=== PATIENT | female | born 1985 | race Caucasian/White ===

== ENCOUNTER 2020-06-27 02:53 | Emergency (ER) | payer OTHER, SELFPAY ==
--- NOTE | ~2020-06-27 | XR_ITS ---
EXAMINATION: XR chest 1V portable DATE: 06/27/2020 04:27 INDICATION: Chest pressure. TECHNIQUE: A single frontal view of the chest was obtained. COMPARISON: Chest CT 07/14 FINDINGS: The chest demonstrates clear lungs without pneumonia, pleural effusion, or pneumothorax. Th e heart size is normal. IMPRESSION: 1. No acute cardiopulmonary disease. Reviewed, dictated and finalized at location A. RPRETATIVE DANCER
--- NOTE | ~2020-06-27 | CT_ITS ---
EXAMINATION: CTA chest PE protocol DATE: 06/27/2020 05:46 INDICATION: Shortness of breath. TECHNIQUE: Computed tomography angiography (CTA) of the chest was performed with 100 mL Omnipaque-350 intravenous contrast timed to evaluate the pulmonary arteries. Coronal maximum intensity projection 3D-reconstructions were created by the technologist. Automated exposure control and iterative reconst ruction technique were employed. The dose-length product was 166.27 mGy-cm. COMPARISON: None. FINDINGS: There is no pneumonia or pleural effusion. The heart size is normal. No pericardial effusio n. There is no pulmonary embolus. There is mild thoracic spondylosis. IMPRESSION: 1. No pulmonary embolism. Reviewed, dictated and finalized at location A. ING ASSISTANT IMPRESSION: 1. No pulmonary embolism.
--- NOTE | ~2020-06-27 | XR_ITS ---
EXAMINATION: 1. XR ankle LT min 3V 2. XR foot LT min 3V DATE: 06/27/2020 03:30 INDICATION: Left foot and ankle injury. TECHNIQUE: 4 views of left ankle and 4 views of the left foot were obtained. COMPARISON: None. FINDINGS: LEFT ANKLE: There is a spiral fracture of distal fibula with medial aspect of the fracture line at th e level of the tibial plafond. The distal fracture fragment demonstrates near-anatomic alignment. The re is a small fragment of ossification distal to medial malleolus. Joint spaces are normal. Ankle sof t tissue swelling is noted. LEFT FOOT: There is mild hallux valgus. There is an old healed fracture of neck of fifth metatarsal. There is mild osteoarthritis of first metatarsophalangeal joint. IMPRESSION: 1. Acute spiral fracture of distal fibula. 2. Small fragment of ossification distal to medial malleolus, which may be an acute avulsion fracture or a finding from old injury. Reviewed, dictated and finalized at location A. ITALITY COORDINATOR IMPRESSION: 1. Acute spiral fracture of distal fibula. 2. Small fragment of ossification distal to medial malleolus, which may be an a cute avulsion fracture or a finding from old injury.
[2020-06-27 03:01] VITALS: BP 123/76; PULSE 134; RESP 20; TEMP 36.7; O2SAT 100
--- NOTE | 2020-06-27 03:22 | ED_ITS ---
HPI - Extremity Injury (Lower) General Chief Complaint: Extremity Problem,Nontraumatic Stated Complaint: foot pain Time Seen by Provider: 06/27/20 02:57 Source: patient Mode of arrival: ambulatory Limitations: no limitations History of Present Illness HPI Narrative: Patient is a 35-year-old female complaining of left foot and left ankle pain after she tripped and fell last night. Related Data Allergies Allergy/AdvReac Type Severity Reaction Status Date / Time cefaclor [From Ceclor] Allergy Rash Verified 06/27/20 03:05 [facility] Social History Social History Gender identity (if verbalized by the patient): Female Exam Const: General: no acute distress and alert Orientation/consciousness: patient oriented x3 HENMT: Head: normal to inspection Eyes: Conjunctivae: conjunctivae normal Neck: Neck: normal visual inspection Resp: Effort & Inspection: normal respiratory effort Back/Spine/Pelvis: Back: no CVA tenderness Skin: General skin exam: normal color, no jaundice and no pallor Extrem: Other: Left ankle swelling, left foot swelling, pain on palpation of the left ankle and foot, neurovascular is intact bilateral lower extremities Course Vital Signs Vital signs: Vital Signs Temperature 36.7 C 06/27/20 03:01 Pulse Rate 134 H 06/27/20 03:01 Respiratory Rate 20 06/27/20 03:01 Blood Pressure 123/76 06/27/20 03:01 Pulse Oximetry 100 06/27/20 03:01 Temperature 36.7 C 06/27/20 03:01 Pulse Rate 134 H 06/27/20 03:01 Respiratory Rate 20 06/27/20 03:01 Blood Pressure 123/76 06/27/20 03:01 Pulse Oximetry 100 06/27/20 03:01 MDM - Extremity Injury (Lower) Differential Diagnosis Differential diagnosis: Likely ankle sprain and strain and ankle fracture Discharge Plan Discharge Clinical Impression: Left ankle sprain Qualifiers: Encounter type: initial encounter Involved ligament of ankle: unspecified li gament Qualified Code(s): S93.402A - Sprain of unspecified ligament of left ankle, initial encounter Sprain of foot, left Qualifiers: Encounter type: initial encounter Qualified Code(s): S93.602A - Unspecified sprain of left foot, initial encounter Patient Disposition: Home, Self-Care Condition: Improved Instructions: Antibiotic Form, Foot Sprain (ED) Prescriptions: New naproxen [Naprosyn] 500 mg tablet 500 mg PO Q12H PRN (Reason: pain) Qty: 10 RF: 0 Follow-up/Referrals: PHYSICIAN NOT ON STAFF,NONSTAFF [Primary Care Provider] - Time of Disposition: 03:34
[2020-06-27] MEDS: KETOROLAC 30 MG/ML VIAL (*BKC) IM (03:54)
--- NOTE | 2020-06-27 04:03 | ECG_ITS ---
Measurements Intervals [place] Rate: 120 P: 91 AR: 120 QRS: 87 QRSD: 81 T: 54 QT: 339 QTc: 480 Interpretive Statements SINUS TACHYCARDIA NONSPECIFIC ST & T-WAVE ABNORMALITY- INFERIOR LEADS BASELINE ARTIFACT- I, II, III, AVR, AVL, AVF, V1 ABNORMAL ECG Electronically Signed On 06-27-2020 13:36:23 [employer] by Luis Carlos Baker D.O.
--- NOTE | 2020-06-27 04:04 | ED.SOB ---
HPI - SOB/Dyspnea General Chief Complaint: Extremity Problem,Nontraumatic Stated Complaint: foot pain Time Seen by Provider: 06/27/20 02:57 Source: patient Mode of arrival: ambulatory Limitations: no limitations History of Present Illness HPI Narrative: Patient is a 35-year-old female who came in complaining of left ankle and foot pain after she tripped and fell last night. Prior to discharge patient states that she is feeling short of breath, denies any chest pain abdominal pain, nausea, vomiting, fever or chills. Related Data Allergies Allergy/AdvReac Type Severity Reaction Status Date / Time cefaclor [From [facility]] Allergy Rash Verified 06/27/20 03:05 Review of Systems Review of Systems: All systems reviewed & are unremarkable except as noted in HPI and below Constitutional: Constitutional: Denies body ache(s), Denies chills, Denies excessive sweating, Denies fatigue, Denies fever(s), Denies headache(s), Denies lethargy, Denies malaise, Denies weakness and Denies weight loss Eyes: Eyes: Denies blurry vision, Denies change in vision and Denies loss of vision ENT: Denies dizziness, Denies ear discharge, Denies headache(s), Denies lip swelling, Denies epistaxis, Denies nasal congestion, Denies neck pain, Denies throat swelling and Denies tongue swelling Cardiovascular: Cardiovascular: Denies chest pain, Denies chest pain at rest, Denies chest pain with activity, Denies diaphoresis, Denies rapid heart rate, Denies edema, Denies irregular heart rhythm, Denies lightheadedness, Denies palpitations and Denies dyspnea on exertion Respiratory: Respiratory: Denies chest congestion, Denies cough, Denies hemoptysis and Denies dyspnea on exertion Gastrointestinal: Gastrointestinal: Denies abdominal pain, Denies melena, Denies hematochezia, Denies diarrhea, Denies nausea, Denies vomiting and Denies hematemesis Neurologic: Denies Abnormal speech present, Denies abnormal gait, Denies confusion, Denies dizziness, Denies headache(s), Denies focal weakness, Denies loss of vision, Denies numbness, Denies Other visual disturbances, Denies Sensory deficit (Neuro) and Denies weakness Psychiatric: Psychiatric: Denies confusion, Denies depression, Denies auditory hallucinations, Denies homicidal ideation and Denies suicidal ideation Endocrine: Endocrine: Denies cold intolerance, Denies excessive sweating, Denies fatigue, Denies heat intolerance and Denies palpitations Hematologic/Lymphatic: Hematologic/Lymphatic: Denies easy bleeding and Denies easy bruising Allergic/Immunologic: Allergic/Immunologic: Denies lip swelling, Denies throat swelling and Denies tongue swelling [facility] Social History Social History Gender identity (if verbalized by the patient): Female Exam Const: General: cooperative, healthy appearing, comfortable, no acute distress, well developed, alert and awake; No confusion Orientation/consciousness: oriented to person, oriented to place, oriented to time, patient oriented x3 and No confusion Limitations: no limitations HENMT: Head: normal to inspection, normocephalic and atraumatic Ears: hearing grossly normal bilaterally, TM normal on the right and TM normal on the left General nose exam: Normal external nose present, Normal nares present and No nasal discharge present Face and sinus: normal facial exam Mouth: Yes Normal oral and palatal mucosa present, Yes lip normal, Yes tongue normal and Yes oropharynx normal Throat: posterior oropharynx normal, tonsils normal and uvula midline Eyes: General: appearance normal, both eyes and all related structures Pupils: Equal, round and reactive pupils present EOM: EOMs intact bilaterally Neck: Neck: normal visual inspection, full ROM, no lymphadenopathy and no meningeal signs Chest: Chest palpation & inspection: normal inspection of the chest Resp: Effort & Inspection: normal respiratory effort, able to speak in complete sentences
[2020-06-27] MEDS: HYDROcodone/acetaminophen (*CRX) 5-325 MG TABLET 2 TAB PO (04:18)
[2020-06-27 04:47] LABS: Basophils Percent Auto 0.3 % (0.2-1.2); Eosinophils Absolute Auto 0.1 K/mm3 (0-0.3); Eosinophils Percent Auto 0.7 % (0-4.4); Hematocrit 39.1 % (37.0-47.0); Hemoglobin 13.1 g/dL (12.0-15.0); Immature Granulocyte Absolute 0.03 K/mm3 (0.00-0.031); Immature Granulocyte Percent A 0.3 % (0-0.5); Mean Corpuscular HGB Conc 33.5 g/dl (32-36); Mean Corpuscular Hemoglobin 28.8 pg (26-34); Mean Corpuscular Volume 85.9 fl (80-100); Monocytes Absolute Auto 0.8 K/mm3 (0.1-0.6); Monocytes Percent Auto 8.4 % (2.6-8.5); Neutrophils Absolute Auto 7.7 K/mm3 (1.3-6.7); Neutrophils Percent Auto 77.3 % (45.5-73.1); Platelet Count Result 482 k/mm3 (150-375); Red Blood Count 4.55 M/mm3 (4.2-5.4); Red Cell Distribution Width 14.1 % (11.5-14.5)
[2020-06-27 05:04] LABS: Alanine Aminotransferase 21 U/L (4-35); Albumin Level 3.8 g/dL (3.5-5.1); Alkaline Phosphatase 103 U/L (38-126); Anion Gap 6 mmol/L (8-16); Aspartate Amino Transferase 30 U/L (14-36); Bilirubin,Total 0.2 mg/dL (0.2-1.3); Blood Urea Nitrogen 11 mg/dL (7-17); Calcium 8.7 mg/dL (8.4-10.2); Carbon Dioxide 25 mmol/L (22-30); Chloride 105 mmol/L (98-107); Estimated CRCL calculation 58 ml/min; Estimated Glomerular Filt Rate > 60; Glucose 130 mg/dL (65-105); Potassium 3.3 mmol/L (3.4-5.0); Sodium 136 mmol/L (137-145)
[2020-06-27 05:13] LABS: INR 0.9; Prothrombin Time 12.6 Seconds (11.1-14.7)
[2020-06-27 05:14] LABS: Partial Thromboplastin Time 31.2 SECONDS (22.3-36.8)
[2020-06-27 05:15] LABS: Troponin I < 0.012 ng/mL (0.000-0.034)
[2020-06-27 05:16] LABS: D Dimer 1.36 ug/mL (<0.48)
[2020-06-27 05:28] VITALS: BP 108/77; PULSE 117; RESP 14; O2SAT 100
[2020-06-27] MEDS: POTASSIUM CHLORIDE 20 MEQ PACKET (FOR LIQUID) PO (05:54)
== END 2020-06-27 06:35 | disposition home or self-care (01) ==
LOC: ANHED 03:38
PROVIDERS: Emergency Provider Emergency Medicine; PCP Family Medicine
DX: S82.832A Other fracture of upper and lower end of left fibula, initial encounter for closed fracture (principal); R00.0 Tachycardia, unspecified; R94.31 Abnormal electrocardiogram [ECG] [EKG]; W01.0XXA Fall on same level from slipping, tripping and stumbling without subsequent striking against object, initial encounter
CPT/HCPCS: 29515; 36415; 71045; 71275; 73610; 73630; 80053; 84484; 85025; 85380; 85610; 85730; 93005; 96372; 99284; A9270; J1885; Q9967